=== PATIENT | male | born 1990 | race Caucasian/White ===

== ENCOUNTER 2019-11-28 11:24 | Emergency (ER) | payer SELFPAY ==
[~2019-11-28] VITALS: Ht 187.9 cm; Wt 99.8 kg
[2019-11-28] MEDS ORDERED: POLYSPORIN OINT15 GM T (11:52)
[2019-11-28] MEDS ORDERED: SEPTDS PO (11:52)
== END 2019-11-28 11:56 | disposition home or self-care (01) ==
LOC: ED 11:24
DX: L08.89 Other specified local infections of the skin and subcutaneous tissue (principal)